=== PATIENT | male | born 1960 | race Caucasian/White ===

== ENCOUNTER 2018-10-14 10:02 | Emergency (ER) | payer OTHER ==
[~2018-10-14] VITALS: Ht 188 cm; Wt 104.3 kg
[2018-10-14 10:34] LABS: HEMATOCRIT 42.5 % (42.0-52.0); HEMOGLOBIN 14.6 gm/dL (14.0-18.0); MCH 32.9 pg (26.0-34.0); MCHC 34.3 g/dL (28.0-37.0); MCV 96.1 fL (80.0-100.0); MPV 9.3 fl. (7.2-11.1); NUCLEATED RBCS 0 /100WBC; PLATELET COUNT* 186 thou/uL (150-400); RBC 4.43 mil/uL (4.50-6.00); RDW-CV 12.9 % (10.5-14.5); WBC 9.2 thou/uL (4.0-11.0)
[2018-10-14 10:45] LABS: ALBUMIN 4.2 g/dL (3.4-5.0); CALCIUM 9.4 mg/dL (8.5-10.1); CREATININE 1.1 mg/dL (0.6-1.3); POTASSIUM 4.4 mmol/L (3.5-5.1); TOTAL BILIRUBIN 1.1 mg/dL (<0.1-1.0); TOTAL PROTEIN 8.3 g/dL (6.4-8.2)
[2018-10-14 10:53] LABS: URINE BLOOD 3+ (Negative); URINE CLARITY CLEAR; URINE COLOR YELLOW; URINE GLUCOSE-RANDOM NEGATIVE (Negative); URINE KETONES 1+ (Negative); URINE LEUKOCYTES-REFLEX 1+ (Negative); URINE NITRITE-REFLEX NEGATIVE (Negative); URINE PROTEIN 2+ (Negative)
[2018-10-14 10:55] LABS: URINE BILIRUBIN 1+ (Negative)
[2018-10-14 10:56] LABS: ICTOTEST (BILI CONFIRMATORY) Negative (Negative)
[2018-10-14 10:58] LABS: BACTERIA-REFLEX 1-9 Few /HPF (None Seen); CASTS None Seen /LPF (None Seen); CRYSTALS None Seen /LPF (None Seen); MUCUS None Seen strn/LPF (None Seen); SQUAMOUS 0-3 Few /LPF (0-3); URINE RBC >20 Many /HPF (0-2); URINE WBC-REFLEX 0-5 Rare /HPF (0-5)
[2018-10-14 11:06] LABS: ABSOLUTE BASOPHILS 0.1 thou/uL (0.0-0.2); ABSOLUTE LYMPHOCYTES 0.9 thou/uL (0.8-5.3); ABSOLUTE MONOCYTES 0.4 thou/uL (0.0-1.2); ABSOLUTE NEUTROPHILS 7.8 thou/uL (1.6-8.1); ATYPICAL LYMPHS 6 %; PLATELET ESTIMATE ADEQUATE
[2018-10-14] MEDS ORDERED: CIPROFLOXACIN500 M1 PO (12:46)
[2018-10-14] MEDS ORDERED: FLAGYL500 M1 PO (12:46)
[2018-10-14 13:13] VITALS: BP 216/121
--- NOTE | 2018-10-14 15:45 | EKG ---
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1960 Requested By: Aston Galvan Order Number: [id number] MD: Sylvain Easton Measurements Intervals [place] Rate: 79 P: 19 TX: 154 QRS: 4 QRSD: 95 T: 42 QT: 393 QTc: 451 Interpretive Statements Sinus rhythm Probable septal infarct, old No previous ECG available for comparison Electronically Signed On 10-14-2018 15:44:53 [employer] by Sylvain Easton [email or web address] <ELECTRONICALLY SIGNED> By: Sylvain Easton MD, [facility] 10/14/18 1544 1030 1030 Sylvain Easton MD, FACC /EPI
== END 2018-10-14 13:15 | disposition home or self-care (01) ==
LOC: M.ERS 10:02
PROVIDERS: Nurse Practitioner Family
DX: K57.20 Diverticulitis of large intestine with perforation and abscess without bleeding (principal); R31.9 Hematuria, unspecified

== ENCOUNTER → 2021-03-17 | Outpatient (CLI) | payer OTHER ==
[~2021-03-17] MED LIST: CIPROFLOXACIN500 M1 PO; FLAGYL500 M1 PO
== END ==
LOC: M.LAB 08:21
PROVIDERS: ATTEND Anesthesiology
DX: Z01.812 Encounter for preprocedural laboratory examination (principal); Z20.822 Contact with and (suspected) exposure to COVID-19

== ENCOUNTER → 2021-05-08 | Outpatient (CLI) | payer OTHER ==
[~2021-05-08] MED LIST changes: +AMIODARONE HCL400 MG PO; +MICARDIS 80 MG80 MG PO
--- NOTE | ~2021-05-08 | CARD ---
[address] [address] CARDIAC CATH REPORT Name: ANGEL PENN Room: [facility]..#: [id number] Admission: 05/08/21 Attend Phys: Edgar Davenport MD Discharge: Date of : 64 Report #: [id number] THIS REPORT FOR: cc: Danis Olivas Bradley L. DO Liston, Michael J. MD [facility] ~ DATE OF SERVICE: 05/08/2021 CARDIAC PROCEDURE PROCEDURE: DC cardioversion. INDICATION: Atrial fibrillation. DESCRIPTION OF PROCEDURE: After informed consent was obtained, the patient was brought to the cardiac holding area. The patient was given 6 mg of intravenous Versed and 150 mg of intravenous fentanyl for conscious sedation. Once the patient was adequately sedated, he was cardioverted from atrial fibrillation to normal sinus rhythm with a single biphasic shock of 360 joules. The patient tolerated the procedure well without complication. He was discharged uneventfully. IMPRESSION: 1. Persistent atrial fibrillation. 2. Successful direct-current cardioversion to normal sinus rhythm. By: 1445 1453Micomrisl Remberto Davenport MD, FACC /nt
[2021-05-08 14:50] LABS: HEMATOCRIT 41.4 % (42.0-52.0); HEMOGLOBIN 14.2 gm/dL (14.0-18.0); MCH 33.8 pg (26.0-34.0); MCHC 34.3 g/dL (28.0-37.0); MCV 98.4 fL (80.0-100.0); MPV 9.8 fl. (7.2-11.1); RBC 4.21 mil/uL (4.50-6.00); RDW-CV 13.3 % (10.5-14.5); WBC 5.6 thou/uL (4.0-11.0)
[2021-05-08 14:52] VITALS: BP 147/82
[2021-05-08 15:00] LABS: INR 1.1; PROTIME 12.1 Seconds (9.20-11.50)
[2021-05-08 15:01] VITALS: BP 135/87
[2021-05-08 15:04] VITALS: BP 128/81
[2021-05-08 15:08] LABS: CALCIUM 9.1 mg/dL (8.5-10.1); POTASSIUM 5.3 mmol/L (3.5-5.1)
[2021-05-08 15:12] LABS: ALBUMIN 4.3 g/dL (3.4-5.0); TOTAL BILIRUBIN 0.7 mg/dL (<0.1-1.0)
[2021-05-08 15:20] VITALS: BP 113/71
[2021-05-08 15:37] VITALS: BP 113/81
--- NOTE | 2021-05-09 09:35 | EKG ---
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 05/09/21 0935 1440 1440 Mu Lira MD, [facility] /EPI
== END | disposition home or self-care (01) ==
LOC: M.CL 13:29
PROVIDERS: ATTEND Internal Medicine Cardiovascular Disease
DX: I48.19 Other persistent atrial fibrillation (principal); Z79.899 Other long term (current) drug therapy; Z79.01 Long term (current) use of anticoagulants